=== PATIENT | female | born 1990 | race Caucasian/White ===

== ENCOUNTER 2021-01-08 21:17 | Emergency (ER) | payer OTHER ==
[2021-01-08 21:33] VITALS: BP 145/82; PULSE 87; TEMP 98.7; BMI 31.1
[2021-01-08] MEDS ORDERED: SODIUM CHLORIDE 0.9% 500 ML INFUS.BAG IV ONE (22:07)
[2021-01-08] MEDS ORDERED: METOCLOPRAMIDE HCL INJECTION 10 MG/2 ML VIAL IVPUSH ONE (22:07)
[2021-01-08] MEDS ORDERED: ACETAMINOPHEN 1000 MG/100 ML VIAL (NON FORMULARY) IVPB ONE (22:07)
[2021-01-08] MEDS ORDERED: ACETAMINOPHEN INJECTION 100 ML IVPB ONE (22:12)
[2021-01-08] MEDS ORDERED: METOCLOPRAMIDE HCL INJECTION 10 MG/2 ML VIAL ONE (22:12)
[2021-01-08 22:38] LABS: BASO % 1.2 % (0-2.0); EOS % 5.5 % (0-4.5); HEMATOCRIT 38.7 % (32.4-45.2); HEMOGLOBIN 12.9 GM/dL (10.7-15.3); MCHC 33.2 g/dl (32.0-36.0); MEAN CELL VOLUME 90.4 fl (80-96); MEAN PLT VOLUME 7.4 fl (7.5-11.1); MONO % 5.1 % (3.8-10.2); NEUT % 60.2 % (42.8-82.8); PLATELET COUNT 414 K/MM3 (134-434); RBC 4.28 M/mm3 (3.60-5.2); RDW 14.3 % (11.6-15.6); WHITE BLOOD COUNT 8.7 K/mm3 (4.0-10.0)
[2021-01-08 22:57] LABS: CALCIUM 9.1 mg/dL (8.5-10.1)
[2021-01-08 22:58] LABS: BLOOD UREA NITROGEN 13.1 mg/dL (7-18)
[2021-01-08 23:01] LABS: CREATININE 0.9 mg/dL (0.55-1.3)
== END 2021-01-08 23:45 | disposition home or self-care (01) ==
LOC: JER 21:17
PROC: 3E033NZ Introduction of Analgesics, Hypnotics, Sedatives into Peripheral Vein, Percutaneous Approach (ICD-10-PCS; principal; 2021-01-08)
PROC: 3E033GC Introduction of Other Therapeutic Substance into Peripheral Vein, Percutaneous Approach (ICD-10-PCS; 2021-01-08)
DX: G44.209 Tension-type headache, unspecified, not intractable (principal)
CPT/HCPCS: 36415; 70450-TC; 80048; 84703; 85025; 99285-25; J0131

== ENCOUNTER 2021-04-17 13:06 | Emergency (ER) | payer OTHER ==
[2021-04-17 13:22] VITALS: BP 150/100; PULSE 93; TEMP 98.5; BMI 29.5
[2021-04-17] MEDS ORDERED: SODIUM CHLORIDE 0.9% 500 ML INFUS.BAG IV ONE (14:11)
[2021-04-17] MEDS ORDERED: ONDANSETRON 4 MG/2 ML VIAL IVPUSH ONE (14:11)
[2021-04-17] MEDS ORDERED: ONDANSETRON 4 MG/2 ML VIAL ONE (14:38)
[2021-04-17 15:17] LABS: BASO % 0.5 % (0-2.0); HEMATOCRIT 38.4 % (32.4-45.2); HEMOGLOBIN 12.9 GM/dL (10.7-15.3); LYMPH % 8.9 % (8-40); MCH 30.3 pg (25.7-33.7); MCHC 33.7 g/dl (32.0-36.0); MEAN CELL VOLUME 89.9 fl (80-96); MEAN PLT VOLUME 7.4 fl (7.5-11.1); MONO % 1.6 % (3.8-10.2); PLATELET COUNT 409 10^3/uL (134-434); RBC 4.28 M/mm3 (3.60-5.2); RDW 14.3 % (11.6-15.6); WHITE BLOOD COUNT 12.1 K/mm3 (4.0-10.0)
[2021-04-17 15:28] LABS: CALCIUM 8.9 mg/dL (8.5-10.1)
[2021-04-17 15:28] LABS: HCG,QUALITATIVE URINE Negative
[2021-04-17 15:29] LABS: ALBUMIN 4.2 g/dl (3.4-5.0); BLOOD UREA NITROGEN 9.3 mg/dL (7-18)
[2021-04-17 15:32] LABS: CREATININE 0.7 mg/dL (0.55-1.3)
[2021-04-17 15:34] LABS: BILIRUBIN,TOTAL 0.3 mg/dL (0.2-1); TOT PROT 8.5 g/dl (6.4-8.2)
[2021-04-17 16:03] LABS: EPI CELLS >36 /uL (0-25.1); HYALINE CASTS 4 /uL (0-3.1); PH,URINE 7.5 (5.0-8.0); URINE APPEARANCE CLEAR; URINE BACTERIA 2519 /uL (0-1359); URINE BILIRUBIN NEGATIVE (NEGATIVE); URINE COLOR YELLOW; URINE GLUCOSE (UA) NEGATIVE (NEGATIVE); URINE KETONE 1+ (NEGATIVE); URINE LEUK ESTERASE NEGATIVE (NEGATIVE); URINE NITRITE NEGATIVE (NEGATIVE); URINE PROTEIN 2+ (NEGATIVE); URINE RBC 118 /uL (0-23.9); URINE UROBILINOGEN 0.2 mg/dL (0.2-1.0); URINE WBC 14 /uL (0-25.8)
== END 2021-04-17 17:40 | disposition home or self-care (01) ==
LOC: JER 13:06
PROC: 3E033NZ Introduction of Analgesics, Hypnotics, Sedatives into Peripheral Vein, Percutaneous Approach (ICD-10-PCS; principal; 2021-04-17)
DX: R11.2 Nausea with vomiting, unspecified (principal)
CPT/HCPCS: 36415; 80053; 81003; 83690; 84703; 85025; 87077; 87086; 99284-25